=== PATIENT | male | born 1965 | race Caucasian/White ===

== ENCOUNTER 2017-08-12 09:19 | Emergency (ER) | payer SELFPAY ==
--- NOTE | 2017-08-12 10:33 | C.PDOC ---
History Of Present Illness Ady Givens is a 52 year old male, with a past medical history of hypertension , who presents to the emergency department complaining of epigastric pain associated with dizziness, and nausea onset for 3 days. Patient describes the pain as "pulsating" and states at times feels a slight headache as well. He denies any history of similar symptoms in the past, vomit, diarrhea, numbness, weakness, chest pain, back pain, or shortness of breath. PMD: None provided. Time Seen by Provider: 08/12/17 09:40 Chief Complaint (Nursing): Medical Clearance History Per: Patient History/Exam Limitations: no limitations Onset/Duration Of Symptoms: Days (x3) Past Medical History Reviewed: Historical Data, Nursing Documentation, Vital Signs Vital Signs: Last Vital Signs Temp 98.0 F 08/12/17 13:44 Pulse 79 08/12/17 13:44 Resp 16 08/12/17 13:44 BP 107/71 08/12/17 13:44 Pulse Ox 98 08/12/17 17:54 - Medical History PMH: HTN Denies: Chronic Kidney Disease Family History: States: Unknown Family Hx - Social History Hx Alcohol Use: No Hx Substance Use: No - Immunization History Hx Tetanus Toxoid Vaccination: Yes Hx Influenza Vaccination: No Hx Pneumococcal Vaccination: No Review Of Systems Except As Marked, All Systems Reviewed And Found Negative. Cardiovascular: Negative for: Chest Pain Respiratory: Negative for: Shortness of Breath Gastrointestinal: Positive for: Nausea, Other (epigastric pain). Negative for: Vomiting, Abdominal Pain, Diarrhea Musculoskeletal: Negative for: Back Pain Neurological: Positive for: Dizziness. Negative for: Weakness, Numbness Physical Exam - Physical Exam Appears: Non-toxic Skin: Normal Color, Warm, Dry, No Rash Head: Atraumatic, Normacephalic Eye(s): bilateral: Normal Inspection, PERRL, EOMI Oral Mucosa: Moist Neck: Normal, Normal ROM, Supple Chest: Symmetrical, No Tenderness Cardiovascular: Rhythm Regular, No Friction Rub, No Murmur Respiratory: Normal Breath Sounds, No Rales, No Rhonchi, No Stridor, No Wheezing Gastrointestinal/Abdominal: Normal Exam, Soft, No Tenderness, No Guarding, No Rebound, Other (No pulsatile mass) Back: Normal Inspection, No CVA Tenderness Extremity: Normal ROM, No Pedal Edema, No Deformity Neurological/Psych: Normal Speech, Normal Cognition, Normal Motor, Normal Sensation Gait: Steady ED Course And Treatment - Laboratory Results Result Diagrams: 08/12/17 10:41 08/12/17 10:41 ECG: Interpreted By Me ECG Rhythm: Sinus Rhythm ECG Interpretation: Normal Rate From EC (bpm) O2 Sat by Pulse Oximetry: 98 (RA) Pulse Ox Interpretation: Normal Medical Decision Making Medical Decision Making: CT dissection study performed to r/o dissection. On re-exam, the patient reports improvement of symptoms. Lungs are CTA, heart is RRR, abdomen is soft, non-tender Abdomen is soft, non-tender and patient is tolerating PO well. Ambulatory in the ED with steady gait. Follow up with the medical doctor within 1-2 days. Return if worsened. Scribe Attestation Written by Nagi Reed acting as a scribe for Cristine MARTIN All medical record entries made by the Scribe were at my direction and personally dictated by me. I have reviewed the chart and agree that the record accurately reflects my personal performance of the history, physical exam, medical decision making, and the department course for this patient. I have also personally directed, reviewed, and agree with the discharge instructions and disposition. Disposition - Disposition Referrals: [facility] at [facility] [Outside] Disposition: HOME/ ROUTINE Disposition Time: 13:58 Condition: GOOD Additional Instructions: Follow up with the medical doctor within 1-2 days. Return if worsened. Prescriptions: Ibuprofen [Motrin] 1 tab PO TID PRN #30 tab PRN Reason: Pain Instructions: Muscle Spasm (ED) Forms: [employer] (Georgian) Print Language: GEORGIAN - Clinical Impression Clinical Impression: Muscle spasm, Abdominal discomfort
[2017-08-12 10:51] LABS: RBC URINE < 1 /hpf (0-3); URINE BILIRUBIN NEGATIVE (NEGATIVE); URINE BLOOD NEGATIVE (NEGATIVE); URINE COLOR Yellow (YELLOW); URINE GLUCOSE (UA) NORMAL (Normal); URINE KETONE NEGATIVE (NEGATIVE); URINE LEUKOCYTE ESTERASE NEG Leu/uL (Negative); URINE PROTEIN NEGATIVE (NEGATIVE); URINE UROBILINOGEN NORMAL mg/dL (0.2-1.0); WBC URINE < 1 /hpf (0-5)
[2017-08-12 10:55] LABS: BASO % 0.8 % (0.0-2.0); EOS # 0.1 K/uL (0.0-0.7); EOS % 2.2 % (0.0-4.0); HEMATOCRIT 44.5 % (35.0-51.0); LYMPH # 1.6 K/uL (1.0-4.3); LYMPH % 43.3 % (20.0-40.0); MEAN CORPUSCULAR HEMOGLOBIN 28.4 pg (27.0-31.0); MEAN CORPUSCULAR HGB CONC 34.6 g/dL (33.0-37.0); MEAN PLATELET VOLUME 8.9 fL (7.2-11.7); MONO # 0.3 K/uL (0.0-0.8); MONO % 9.4 % (0.0-10.0); NRBC % 0.1 % (0.0-2.0); RED CELL DISTRIBUTION WIDTH 14.7 % (11.5-14.5); WHITE BLOOD COUNT 3.7 K/uL (4.8-10.8)
[2017-08-12 10:56] LABS: CHLORIDE 100 mmol/L (98-107)
[2017-08-12 10:57] LABS: POTASSIUM 4.7 mmol/L (3.6-5.2); SODIUM 140 mmol/L (132-148)
--- NOTE | 2017-08-12 10:57 | RAD ---
PROCEDURE: CHEST RADIOGRAPH, 1 VIEW HISTORY: Abdominal pain COMPARISON: 08/12/2017 FINDINGS: LUNGS: Mild venous congestion. Right hilar prominence. Mild patchy increased markings at the left lung base. PLEURA: No pneumothorax or pleural fluid seen. CARDIOVASCULAR: Cardiomegaly. OSSEOUS STRUCTURES: Degenerative changes in the spine and shoulders. VISUALIZED UPPER ABDOMEN: Normal. OTHER FINDINGS: None. IMPRESSION: Mild venous congestion. Right hilar prominence. Mild patchy increased markings at the left lung base. Cardiomegaly.
[2017-08-12 10:59] LABS: ALB/GLOB RATIO 1.4 (1.0-2.1); AST/SGOT 18 U/L (17-59); BILIRUBIN,TOTAL 1.2 mg/dL (0.2-1.3); CARBON DIOXIDE 27 mmol/L (22-30); GFR AFRICAN-AMERICAN > 60
[2017-08-12 11:00] LABS: ALKALINE PHOSPHATASE 43 U/L (38-126); ALT/SGPT 34 U/L (21-72); BLOOD UREA NITROGEN 11 mg/dL (9-20); CALCIUM 9.5 mg/dl (8.6-10.4); GLUCOSE,RANDOM 87 mg/dL (75-110)
[2017-08-12] MEDS ORDERED: Iodixanol 320 MG/ML 100 ML BOTTLE IV ONE (12:20)
--- NOTE | 2017-08-12 12:59 | CT ---
CT chest abdomen and pelvis aortic dissection study History: Pulsating epigastric pain. Comparison: None available. Technique: Multiple contiguous axial images were performed through the chest abdomen and pelvis without and with the use of intravenous contrast according to aortic dissection protocol. Subsequently, sagittal coronal reformatted images were obtained. Findings: No evidence of acute aortic dissection. Mild prominence of the ascending thoracic aorta measuring 3.6 centimeters. Aortic arch measures 3.3 centimeters. Descending thoracic aorta measures 3.2 centimeters. No evidence of aneurysmal dilatation of the abdominal aorta. Branch vessels including celiac, SMA, and CLEO appear grossly preserved proximally. Bilateral renal arteries appear grossly preserved proximally. No significant axillary adenopathy. Heterogeneous thyroid gland with 2-3 millimeter nodule in the left lobe of the thyroid. Few shotty pre-vascular lymph nodes including a 9.5 millimeter prevascular lymph node at the level of the aortic arch. No significant axillary adenopathy. No pleural or pericardial effusion. Top-normal prominence of the heart. Prominent liver with fatty infiltration. Distended gallbladder. Heterogeneous spleen which may be related to phase of contrast. Mild nodular thickening of the adrenals. Pancreas is preserved. Small hiatal hernia. Right kidney: No calculi or hydronephrosis. Left Kidney: Midpole 3 millimeter echogenic nonobstructive left renal calcification. No hydronephrosis. Urinary bladder is preserved. Heterogeneous prostate. Fecal retention in the colon. Appendix not well identified. Few shotty para-aortic and mesenteric lymph nodes. Degenerative changes in the spine. Prominent sclerosis in the right iliac bone particularly at the level of the right SI joint. This of uncertain clinical etiology. Correlation with nuclear medicine bone scan may be helpful if clinically indicated. Right lung: Mild atelectasis within the anterior aspect of the right lower lobe. Left lung: Mild atelectasis within the left lower lobe. Trachea thru central airways are patent. Small hiatal hernia. Impression: 1. No evidence of acute aortic dissection. 2. Mild prominence of the ascending thoracic aorta measuring 3.6 centimeters. Aortic arch measures 3.3 centimeters. Descending thoracic aorta measures 3.2 centimeters. 3. Heterogeneous thyroid gland with 2-3 millimeter nodule in the left lobe of the thyroid. 4. Few shotty pre-vascular lymph nodes including a 9.5 millimeter prevascular lymph node at the level of the aortic arch. 5. Prominent sclerosis in the right iliac bone particularly at the level of the right SI joint. This is of uncertain clinical etiology. Correlation with nuclear medicine bone scan may be helpful if clinically indicated. 6. Small hiatal hernia. 7. Midpole 3 millimeter echogenic nonobstructive left renal calcification.
[2017-08-12 13:45] VITALS: BP 107/71; PULSE 79; RESP 16; TEMP 98
[2017-08-12 14:01] VITALS: O2SAT 98
--- NOTE | 2017-08-14 21:58 | CARD ---
APPROVED REPORT EKG Measurement Heart [id number] <Conclusion> Normal sinus rhythm Moderate voltage criteria for LVH, may be normal variant Borderline ECG
== END 2017-08-12 14:16 | disposition home or self-care (01) ==
LOC: C.ER 09:19
DX: R10.13 Epigastric pain (principal); M62.838 Other muscle spasm
CPT/HCPCS: 71010; 71275; 74175; 80053; 81001; 83690; 84484; 85025; 93005; 96372; 99284; J1885; Q9967

== ENCOUNTER 2018-02-19 11:12 | Emergency (ER) | payer SELFPAY ==
[2018-02-19 11:21] VITALS: BP 122/83; PULSE 69; RESP 18; TEMP 98.1; O2SAT 97
--- NOTE | 2018-02-19 11:45 | C.PDOC ---
History Of Present Illness 52 y/o male presents to ED with complaints of rectal pain with bowel movements for 1 week with associated blood tinched stool since yesterday. Patient reports previous history of hemorrhoid years ago. Patient denies fever, abdominal pain, vomiting, diarrhea or any other complaints at this time. Time Seen by Provider: 02/19/18 11:27 Chief Complaint (Nursing): GI Problem History Per: Patient History/Exam Limitations: no limitations Onset/Duration Of Symptoms: Days Current Symptoms Are (Timing): Still Present Past Medical History Reviewed: Historical Data, Nursing Documentation, Vital Signs Vital Signs: Last Vital Signs Temp 98.1 F 02/19/18 11:18 Pulse 69 02/19/18 11:18 Resp 18 02/19/18 11:18 BP 122/83 02/19/18 11:18 Pulse Ox 97 02/19/18 11:53 - Medical History PMH: HTN Surgical History: No Surg Hx Family History: States: No Known Family Hx - Social History Hx Alcohol Use: No Hx Substance Use: No - Immunization History Hx Tetanus Toxoid Vaccination: Yes Hx Influenza Vaccination: No Hx Pneumococcal Vaccination: No Review Of Systems Gastrointestinal: Positive for: Hematochezia, Rectal Pain. Negative for: Nausea , Vomiting, Abdominal Pain, Diarrhea Physical Exam - Physical Exam Appears: Non-toxic, No Acute Distress, Other (Comfortable) Skin: Warm, Dry, No Rash Head: Atraumatic, Normacephalic Oral Mucosa: Moist Neck: Normal ROM, Supple Cardiovascular: Rhythm Regular Respiratory: Normal Breath Sounds, No Rales, No Rhonchi, No Wheezing Gastrointestinal/Abdominal: Soft, No Tenderness, No Guarding, No Rebound Rectal: No Blood Streaked Stool, Hemorrhoids (external at 9oclock tender on palpation ) Back: No CVA Tenderness Neurological/Psych: Oriented x3, Normal Speech ED Course And Treatment O2 Sat by Pulse Oximetry: 97 (RA) Pulse Ox Interpretation: Normal Progress Note: Colace administered at ED and patient discharged with Colace prescription. Patient advised to follow up with surgery if Hemorrhoid does not improve Disposition Counseled Patient/Family Regarding: Studies Performed, Diagnosis, Need For Followup, Rx Given - Disposition Referrals: [facility] [Outside] Disposition: HOME/ ROUTINE Disposition Time: 11:45 Condition: STABLE Additional Instructions: FOLLOW UP WITH GENERAL SURGEON WITHIN 1 WEEK USE MEDICATIONS DIRECTED RETURN TO EMERGENCY ROOM IF SYMPTOMS WORSEN SEGUIMIENTO CON CIRUJANO GENERAL DENTRO DE 1 SEMANA USE MEDICAMENTOS SEGN LO INDICADO REGRESE AL MIKO DE EMERGENCIA SI LOS SNTOMAS EMPEORAN Prescriptions: Docusate [Colace] 100 mg PO DAILY #30 cap Hydrocortisone 2.5% (Rectal) [Anusol-HC] 1 applic AL TID #1 tube Instructions: Hemorrhoids, How to Do a Sitz Bath Forms: [employer] (Haitian) Print Language: GREEK - Clinical Impression Clinical Impression: Hemorrhoid - Scribe Statement The provider has reviewed the documentation as recorded by the Scribjodee Sofia All medical record entries made by the Claudiaibe were at my direction and personally dictated by me. I have reviewed the chart and agree that the record accurately reflects my personal performance of the history, physical exam, medical decision making, and the department course for this patient. I have also personally directed, reviewed, and agree with the discharge instructions and disposition.
== END 2018-02-19 12:07 | disposition home or self-care (01) ==
LOC: C.ER 11:12
DX: K64.9 Unspecified hemorrhoids (principal)